=== PATIENT | female | born 1980 | race Caucasian/White ===

== ENCOUNTER 2022-09-03 17:22 | Emergency (ER) | payer OTHER, SELFPAY ==
--- NOTE | 2022-09-03 17:29 | ED.SKABFB ---
HPI - Skin/Abscess/Foreign Bdy General Chief complaint: Skin/Abscess/Foreign Body Stated complaint: right ear cyst/opened up Source: patient and RN notes reviewed History of Present Illness HPI narrative: 42 yo F presents to urgent care with complaints of a tender bump behind her right earlobe. Pt states she first noticed it 1 week ago and yesterday it popped and drained a copious amount of yellow drainage. Pt denies any inner ear pain. Denies any fevers, chills, or other complaints. Related Data Allergies Allergy/AdvReac Type Severity Reaction Status Date / Time No Known Allergies Allergy Verified 09/03/22 17:50 Review of Systems Review of Systems: CONSTITUTIONAL: Denies fever, chills, or sweats. EYES: Denies visual changes, redness, or discharge. ENT: Denies otalgia and sore throat CARDIOVASCULAR: Denies chest pain, palpitations, or edema. RESPIRATORY: Denies cough or dyspnea. GASTROINTESTINAL: Denies abdominal pain, nausea, vomiting, or diarrhea. GENITOURINARY: Denies dysuria or hematuria. SKIN: tender cyst like bump to right ear MUSCULOSKELETAL: Denies back pain, joint pain, or myalgia. NEUROLOGIC: Denies headache, numbness, or weakness. Pertinent positives per HPI. PMFSH Comments At the time of my signature, I reviewed and agree with the nursing past medical, surgical, social, and family history. There is no relevant family history pertinent to the patient complaint. Exam Narrative: GENERAL: This is a well-nourished, well-developed patient, in no apparent distress. HEAD: normocephalic, atraumatic. EYES: Sclera clear/white. Vision is grossly intact. EARS: 1 cm erythremic cyst to posterior right earlobe. scab noted to center of cyst. no drainage noted. NOSE: External nose normal with no obvious nasal discharge, nares without redness, no rhinorrhea. THROAT: Mucous membranes moist, posterior pharynx clear. NECK: Neck supple, non-tender without lymphadenopathy, masses or thyromegaly. CARDIOVASCULAR: Regular rate RESPIRATORY: No respiratory distress SKIN: warm, intact with no suspicious lesions or rash, good texture and turgor. NEURO: awake, alert, and oriented to person, place and time. There were no obvious focal neurologic abnormalities. Course Course Level of Care: Express Care Visit Vital Signs Vital signs: Vital Signs Temperature 98.1 F 09/03/22 17:46 Pulse Rate 98 09/03/22 17:46 Respiratory Rate 18 09/03/22 17:46 Blood Pressure 115/74 09/03/22 17:46 Pulse Oximetry 100 09/03/22 17:46 Oxygen Delivery Room Air 09/03/22 17:46 Temperature 98.1 F 09/03/22 17:46 Pulse Rate 98 09/03/22 17:46 Respiratory Rate 18 09/03/22 17:46 Blood Pressure 115/74 09/03/22 17:46 Pulse Oximetry 100 09/03/22 17:46 Oxygen Delivery Room Air 09/03/22 17:46 Reviewed MDM - Skin/Abscess/Foreign Bdy MDM Narrative Medical decision making narrative: Take the antibiotics as directed. Follow up with Plastics next week. Differential Diagnosis Differential diagnosis: Likely abscess of skin or subcutaneous tissue, cellulitis and insect bites Critical Care Time Critical Care Time Critical Care Time: No Discharge Plan Discharge Clinical Impression: Infected cyst of skin Patient Disposition: Home, Self-Care Condition: Stable Instructions: Antibiotic Form, Cyst (ED) Additional Instructions: Take the antibiotics as directed. Follow up with Plastics next week. Prescriptions: New cephalexin 500 mg capsule 500 mg PO Q12H 7 Days Qty: 14 0RF mupirocin 2 % ointment 1 applic topical BID Qty: 22 0RF Follow-up/Referrals: PHYSICIAN,SEC REPORTING CONSULTANT [Primary Care Provider] - Time of Disposition: 17:55
[2022-09-03 17:46] VITALS: BP 115/74; PULSE 98; RESP 18; TEMP 36.7; O2SAT 100
== END 2022-09-03 17:55 | disposition home or self-care (01) ==
PROVIDERS: Emergency Provider Nurse Practitioner Family
DX: L72.9 Follicular cyst of the skin and subcutaneous tissue, unspecified (principal)
CPT/HCPCS: 99213; G0463